=== PATIENT | male | born 1955 | race Hispanic/Latino ===

== ENCOUNTER 2019-07-27 13:26 | Inpatient (IN) | payer SELFPAY ==
[2019-07-27 14:29] LABS: Absolute Lymphocytes (CBC) 1.5 K/uL (0.7-4.9); Basophils % 0.9 % (0-1.3); Hematocrit 53.1 % (39.6-49.0); Lymphocytes % 20.9 % (15.3-44.8); Protime INR 1.1; RBC Red Blood Cell Count 6.08 M/uL (4.33-5.43)
[2019-07-27 14:44] LABS: ALT/SGPT 51 U/L (12-78); AST/SGOT 37 U/L (15-37); Albumin 3.9 g/dL (3.4-5.0); Alkaline Phosphatase 58 U/L (45-117); BUN Blood Urea Nitrogen 9 mg/dL (7-18); Bicarbonate 22 mmol/L (21-32); Bilirubin Direct 0.1 mg/dL (0-0.2); Bilirubin Total 0.6 mg/dL (0.2-1.0); Glucose Level 97 mg/dL (74-106); Magnesium 2.1 mg/dL (1.8-2.4); NT PRO-BNP 47 pg/mL (<125); Potassium 3.8 mmol/L (3.5-5.1); Protein, Total 8.1 g/dL (6.4-8.2); Sodium Level 138 mmol/L (136-145); Troponin (Emerg Dept Use Only) 0.03 ng/mL (0.0-0.045)
--- NOTE | 2019-07-27 14:52 | RAD REPORT ---
EXAM DESCRIPTION: RAD - Chest Single View - 07/27/2019 2:45 pm CLINICAL HISTORY: SOB COMPARISON: None TECHNIQUE: AP portable chest image was obtained 07/27/2019 2:45 pm . FINDINGS: Lung volumes are low. Portable technique and large body habitus accentuate lung markings. That said, patient has very prominent interstitial pattern throughout the lung rangel worse in the mi d and lower left lung field. There is probable airspace component in the left lung field. Cardiomegal y is present. Vascular engorgement is present. The trachea remains in the midline. Mild left hemidiap hragm elevation is present. No measurable pleural effusion and no pneumothorax. No acute bony abnorma lity seen. No acute aortic findings suspected. IMPRESSION: Extensive interstitial opacification throughout the lung rangel with greater interstitia l and some alveolar opacities in the lower left lung field. Patient could have left lower lung field pneumonia if there are matching clinical or laboratory findi ngs. CHF/volume overload can have this presentation as well.
--- NOTE | 2019-07-27 15:41 | ER ---
Nurse's Notes [facility] Name: Ramón Estrada Age: 64 yrs Sex: Male : 1955 Arrival Date: 07/27/2019 Time: 13:31 Bed 4 Private MD: Diagnosis: Unspecified diastolic (congestive) heart failure Presentation: 07/26 13:41 Chief complaint: Patient states: i went to clinic, the [facility] because i got tw2 some some cough but it has been there for a year, and i feel short of breath and tired and i start coughing, i rest and it gets better. Coronavirus screen: Patient reports a cough. Patient reports shortness of breath or difficulty breathing. Patient denies measured and/or subjective temperature greater than 100.4F prior to today's visit. Patient denies travel on a cruise ship or to a country the [facility] currently lists as an affected area. Patient denies contact with known and/or suspected case of COVID-19. Ebola Screen: Patient denies travel to an Ebola-affected area in the 21 days before illness onset. Initial Sepsis Screen: Does the patient meet any 2 criteria? RR > 20 per min. HR > 90 bpm. Does the patient have a suspected source of infection? No. Patient's initial sepsis screen is negative. Risk Assessment: Do you want to hurt yourself or someone else? Patient reports no desire to harm self or others. Onset of symptoms was July 27, 2019. 13:41 Method Of Arrival: Ambulatory tw2 13:41 Acuity: DAVE 3 tw2 Triage Assessment: 13:44 General: Appears in no apparent distress. obese, well groomed, Behavior is calm, tw2 cooperative, appropriate for age. Pain: Denies pain. Respiratory: Reports shortness of breath at rest on exertion Onset: The symptoms/episode began/occurred "a year now but this time it seems worse", the patient has moderate shortness of breath. Historical: - Allergies: 13:46 No Known Allergies; tw2 - Home Meds: 13:46 None [Active]; tw2 - PMHx: 13:46 unknown; tw2 - PSHx: 13:46 None; tw2 - Immunization history:: Adult Immunizations. - Social history:: Smoking status: Patient/guardian denies using tobacco products. Screenin:45 Abuse screen: Denies threats or abuse. Denies injuries from another. Nutritional bp screening: No deficits noted. Tuberculosis screening: No symptoms or risk factors identified. Fall Risk None identified. Assessment: 13:45 General: SEE TRIAGE NOTE. bp 14:00 General: Appears in no apparent distress. uncomfortable, Behavior is calm, cooperative, jl7 appropriate for age. Pain: Denies pain. Neuro: Level of Consciousness is awake, alert, obeys commands, Oriented to person, place, time, situation. Cardiovascular: Heart tones present Patient's skin is warm and dry. Respiratory: Airway is patent Respiratory effort is even, labored, Respiratory pattern is symmetrical, tachypnea Breath sounds are diminished bilaterally. GI: Abdomen is round non-distended, Patient currently denies diarrhea, nausea, vomiting. Derm: Skin is pink, warm \\T\\ dry. 14:26 Reassessment: ALL CURRENT ORDERS IN PROCESS. Cardiovascular: Rhythm is sinus rhythm. bp Respiratory: Airway is patent Respiratory effort is even, unlabored, Breath sounds are clear bilaterally. 15:00 Reassessment: Patient appears in no apparent distress at this time. No changes from jl7 previously documented assessment. Patient and/or family updated on plan of care and expected duration. Pain level reassessed. Patient is alert, oriented x 3, equal unlabored respirations, skin warm/dry/pink. 16:00 Reassessment: Patient appears in no apparent distress at this time. Patient and/or jl7 family updated on plan of care and expected duration. Pain level reassessed. Patient is alert, oriented x 3, equal unlabored respirations, skin warm/dry/pink. Patient denies pain at this time. Vital Signs: 13:41 BP 132 / 113; Pulse 101; Resp 22; Temp 98.0(TE); Pulse Ox 86% on R/A; Weight 124.74 kg tw2 (R); Height 5 ft. 7 in. (170.18 cm) (R); Pain 0/10; 13:59 BP 153 / 99; Pulse 95; Resp 29; Pulse Ox 95% 3 lpm ; Pain 0/10; jl7 14:24 BP 153 / 84; Pulse 93; Resp 27; Pulse Ox 95% ; bp 15:32 BP 143 / 95; Pulse 85; Resp 25; Pulse Ox 91% on 3 lpm NC; jl7 16:06 BP 143 / 86; Pulse 91; Resp 28 S; Pulse Ox 94% on 3 lpm NC; jl7 13:41 Body Mass Index 43.07 (124.74 kg, 170.18 cm) tw2 13:41 placed on 2L nc at this time, 96% on 2L tw2 ED Course: 13:31 Patient arrived in ED. mr 13:44 Triage completed. tw2 13:44 Arm band placed on. tw2 13:45 Patient has correct armband on for positive identification. Bed in low position. Call bp light in reach. Side rails up X2. 13:47 Archana Stratton RN is Primary Nurse. jl7 13:59 [facility] snw 13:59 Rl Velez MD is Attending Physician. snw 14:00 environmental monitoring specialist on. Pulse ox on. NIBP on. jl7 14:13 Initial lab(s) drawn, by mo, sent to lab. Inserted saline lock: 20 gauge in right jl7 forearm, using aseptic technique. Blood collected. Oxygen administration via nasal cannula \\T\\ 3L/min Response to oxygen therapy: symptoms improved. 14:46 XRAY Chest (1 view) In Process Unspecified. EDMS 15:39 Le Sagastume MD is Hospitalizing Provider. snw 16:05 COIVD-19 swab sent to lab. Informed Shari in the lab the pt is being admitted and the jl7 swab needs to go to Shari Flood verbalized understanding. 17:08 No provider procedures requiring assistance completed. Patient admitted, IV remains in jl7 place. intact, No redness/swelling at site. Administered Medications: 16:06 Drug: Lasix 20 mg Route: IVP; Site: right forearm; jl7 16:55 Follow up: Response: No adverse reaction jl7 16:06 Drug: Aspirin Chewable Tablet 324 mg Route: PO; jl7 16:55 Follow up: Response: No adverse reaction jl7 Outcome: 15:39 Decision to Hospitalize by Provider. snw 17:08 Admitted to Med/surg accompanied by nurse, via wheelchair, room 412, with oxygen, with jl7 chart, Report called to BARD Shetty 17:08 Condition: stable 17:08 Discharge instructions given to patient, Instructed on the need for admit, Demonstrated understanding of instructions. 17:25 Patient left the ED. jl7 Signatures: Dispatcher [employer] EDMS Lillian Heranndez, SCARF GLUER-C SCARF GLUER-Csnw MeehanAna Cristina mr Nano Dodd, RN RN tw2 Archana Stratton RN RN jl7 Ab Garcia RN RN bp
--- NOTE | 2019-07-27 15:42 | EDPHYS ---
Physician Documentation [facility] Name: Ramón Estrada Age: 64 yrs Sex: Male : 1955 Arrival Date: 07/27/2019 Time: 13:31 Bed 4 Private MD: ED Physician Rl Velez HPI: 07/26 14:38 This 64 yrs old Male presents to ER via Ambulatory with complaints of snw Shortness Of Breath. 14:38 The patient has shortness of breath at rest, with light activity. Onset: The snw symptoms/episode began/occurred gradually. Duration: The symptoms are continuous. Associated signs and symptoms: Pertinent positives: non-productive cough. Severity of symptoms: At their worst the symptoms were moderate severe. The patient has not experienced similar symptoms in the past. The patient has been recently seen by a physician: the patient's primary care provider, with similar presenting complaints, and was sent to the [facility] Emergency Department for further evaluation. Historical: - Allergies: 13:46 No Known Allergies; tw2 - Home Meds: 13:46 None [Active]; tw2 - PMHx: 13:46 unknown; tw2 - PSHx: 13:46 None; tw2 - Immunization history:: Adult Immunizations. - Social history:: Smoking status: Patient/guardian denies using tobacco products. ROS: 14:37 Eyes: Negative for injury, pain, redness, and discharge, ENT: Negative for injury, snw pain, and discharge, Neck: Negative for injury, pain, and swelling. 14:37 Abdomen/GI: Negative for abdominal pain, nausea, vomiting, diarrhea, and constipation, Back: Negative for injury and pain, : Negative for injury, bleeding, discharge, and swelling, MS/Extremity: Negative for injury and deformity, Skin: Negative for injury, rash, and discoloration, Neuro: Negative for headache, weakness, numbness, tingling, and seizure, Psych: Negative for depression, anxiety, suicide ideation, homicidal ideation, and hallucinations. 14:37 Constitutional: Positive for fatigue, malaise. 14:37 Cardiovascular: Positive for orthopnea, paroxysmal nocturnal dyspnea. 14:37 Respiratory: Positive for cough, shortness of breath. Exam: 14:35 Head/Face: Normocephalic, atraumatic. Eyes: Pupils equal round and reactive to light, snw extra-ocular motions intact. Lids and lashes normal. Conjunctiva and sclera are non-icteric and not injected. Cornea within normal limits. Periorbital areas with no swelling, redness, or edema. ENT: Nares patent. No nasal discharge, no septal abnormalities noted. Tympanic membranes are normal and external auditory canals are clear. Oropharynx with no redness, swelling, or masses, exudates, or evidence of obstruction, uvula midline. Mucous membranes moist. Neck: Trachea midline, no thyromegaly or masses palpated, and no cervical lymphadenopathy. Supple, full range of motion without nuchal rigidity, or vertebral point tenderness. No Meningismus. Chest/axilla: Normal chest wall appearance and motion. Nontender with no deformity. No lesions are appreciated. 14:35 Abdomen/GI: Soft, non-tender, with normal bowel sounds. No distension or tympany. No guarding or rebound. No evidence of tenderness throughout. Back: No spinal tenderness. No costovertebral tenderness. Full range of motion. Skin: Warm, dry with normal turgor. Normal color with no rashes, no lesions, and no evidence of cellulitis. MS/ Extremity: Pulses equal, no cyanosis. Neurovascular intact. Full, normal range of motion. Neuro: Awake and alert, GCS 15, oriented to person, place, time, and situation. Cranial nerves II-XII grossly intact. Motor strength 5/5 in all extremities. Sensory grossly intact. Cerebellar exam normal. Normal gait. Psych: Awake, alert, with orientation to person, place and time. Behavior, mood, and affect are within normal limits. 14:35 Constitutional: The patient appears alert, awake, comfortable, obese. 14:35 Cardiovascular: Rate: tachycardic, Rhythm: irregular, Pulses: no pulse deficits are appreciated, Heart sounds: gallop, Edema: is not appreciated. 14:35 Respiratory: the patient does not display signs of respiratory distress, Respirations: nasal flaring, that is moderate, shallow respirations, tachypnea, Breath sounds: are clear throughout. Vital Signs: 13:41 BP 132 / 113; Pulse 101; Resp 22; Temp 98.0(TE); Pulse Ox 86% on R/A; Weight 124.74 kg tw2 (R); Height 5 ft. 7 in. (170.18 cm) (R); Pain 0/10; 13:59 BP 153 / 99; Pulse 95; Resp 29; Pulse Ox 95% 3 lpm ; Pain 0/10; jl7 14:24 BP 153 / 84; Pulse 93; Resp 27; Pulse Ox 95% ; bp 15:32 BP 143 / 95; Pulse 85; Resp 25; Pulse Ox 91% on 3 lpm NC; jl7 16:06 BP 143 / 86; Pulse 91; Resp 28 S; Pulse Ox 94% on 3 lpm NC; jl7 13:41 Body Mass Index 43.07 (124.74 kg, 170.18 cm) tw2 13:41 placed on 2L nc at this time, 96% on 2L tw2 MDM: 14:24 Patient medically screened. snw 15:37 Data reviewed: vital signs, nurses notes, EKG. Data interpreted: Pulse oximetry: on snw room air is 91 %. Interpretation: hypoxia. Plan: O2 by NC applied. Counseling: I had a detailed discussion with the patient and/or guardian regarding: the historical points, exam findings, and any diagnostic results supporting the discharge/admit diagnosis, the presence of at least one elevated blood pressure reading (>120/80) during this emergency department visit, lab results, radiology results, the need for further work-up and treatment in the hospital. Physician consultation: Le Sagastume MD was called at 15:38, was contacted at 15:38, regarding admission, to the telemetry unit. 07/26 13:59 Order name: Basic Metabolic Panel; Complete Time: 14:45 07/26 13:59 Order name: CBC with Diff; Complete Time: 14:40 07/26 13:59 Order name: LFT's; Complete Time: 14:45 07/26 13:59 Order name: Magnesium; Complete Time: 14:45 07/26 13:59 Order name: NT PRO-BNP; Complete Time: 14:45 07/26 13:59 Order name: PT-INR; Complete Time: 14:39 07/26 13:59 Order name: Troponin (emerg Dept Use Only); Complete Time: 14:45 07/26 13:59 Order name: XRAY Chest (1 view); Complete Time: 15:14 07/26 15:37 Order name: COVID-19; Complete Time: 16:33 snw 07/26 16:20 Order name: CBC with Automated Diff EDMS 07/26 16:20 Order name: CBC with Automated Diff EDMS 07/26 16:20 Order name: Comprehensive Metabolic Panel EDTX 07/26 16:20 Order name: Comprehensive Metabolic Panel EDTX 07/26 13:59 Order name: EKG; Complete Time: 14:01 7 07/26 13:59 Order name: Cardiac monitoring; Complete Time: 14:13 7 07/26 13:59 Order name: EKG - Nurse/Tech; Complete Time: 14:13 7 07/26 13:59 Order name: IV Saline Lock; Complete Time: 14:13 7 07/26 13:59 Order name: Labs collected and sent; Complete Time: 14:13 7 07/26 13:59 Order name: O2 Per Protocol; Complete Time: 14:13 7 07/26 13:59 Order name: O2 Sat Monitoring; Complete Time: 14:13 [facility] 07/26 16:19 Order name: CONS Pharmacy Consult EDTX 07/26 16:19 Order name: CONS Physician Consult EDTX 07/26 16:19 Order name: Heart Healthy EDMS EC:10 Rate is 97 beats/min. Rhythm is regular. [place] interval is normal. QRS interval is normal. snw T waves are Inverted in leads III, V3, V4. No ST changes noted. Clinical impression: NSR w/ Non-specific ST/T Changes. Administered Medications: 16:06 Drug: Lasix 20 mg Route: IVP; Site: right forearm; [facility] 16:55 Follow up: Response: No adverse reaction [facility] 16:06 Drug: Aspirin Chewable Tablet 324 mg Route: PO; jl7 16:55 Follow up: Response: No adverse reaction jl Disposition: 07/27 13:39 Co-signature as Attending Physician, Rl Velez MD I agree with the assessment and kdr plan of care. Disposition: 07/27/19 15:39 Hospitalization ordered by Le Sagastume for Observation. Preliminary diagnosis is Unspecified diastolic (congestive) heart failure. - Bed requested for Telemetry/MedSurg (Inpatient). - Status is Observation. jl7 - Condition is Stable. - Problem is an ongoing problem. - Symptoms have worsened. Signatures: Dispatcher [employer] EDMS Sherley Haywood bd Rl Velez MD MD kdr Lillian Hernandez, PROFILE STITCHING MACHINE OPERATOR-C PROFILE STITCHING MACHINE OPERATOR-Csnw Nano Dodd, BRAD RN tw2 Archana Stratton, BRAD RN jl7 Corrections: (The following items were deleted from the chart) 07/26 16:32 15:39 Hospitalization Ordered by Le Sagastume MD for Inpatient Admission. Preliminary snw diagnosis is Unspecified diastolic (congestive) heart failure. Bed requested for Telemetry/MedSurg (Inpatient). Status is Inpatient Admission. Condition is Stable. Problem is an ongoing problem. Symptoms have worsened. snw 16:46 16:32 07/27/2019 15:39 Hospitalization Ordered by Le Sagastume MD for Observation. bd Preliminary diagnosis is Unspecified diastolic (congestive) heart failure. Bed requested for Telemetry/MedSurg (Inpatient). Status is Observation. Condition is Stable. Problem is an ongoing problem. Symptoms have worsened. [facility] 17:25 16:46 07/27/2019 15:39 Hospitalization Ordered by Le Sagastume MD for Observation. jl7 Preliminary diagnosis is Unspecified diastolic (congestive) heart failure. Bed requested for Telemetry/MedSurg (Inpatient). Status is Observation. Condition is Stable. Problem is an ongoing problem. Symptoms have worsened. bd
[2019-07-27] MEDS ORDERED: ASPIRIN 81 MG CHEWABLE TABLET ONE (16:00)
[2019-07-27] MEDS ORDERED: FUROSEMIDE 20 MG/ 2ML VIAL ONE (16:00)
[2019-07-27] MEDS ORDERED: MORPHINE 2 MG/ML SYR IV PRN (16:01)
[2019-07-27] MEDS ORDERED: ONDANSETRON 4 MG/2 ML VIAL IV PRN (16:01)
[2019-07-27] MEDS ORDERED: ACETAMINOPHEN 500 MG TAB PO PRN (16:01)
[2019-07-27] MEDS ORDERED: ALBUTEROL 2.5 MG/3 ML NEB SOL NEB PRN (17:48)
[2019-07-27] MEDS ORDERED: LORAZEPAM 0.5 MG TABLET PO PRN (17:48)
[2019-07-27] MEDS ORDERED: HYDRALAZINE HCL 20 MG/ML VIAL IV PRN (17:48)
[2019-07-27] MEDS ORDERED: GUAIFENESIN/DM 5 ML UCUP PO PRN (17:48)
--- NOTE | 2019-07-27 17:51 | P.HP ---
Certification for Inpatient Patient admitted to: Observation With expected LOS: <2 Midnights Patient will require the following post-hospital care: None Practitioner: I am a practitioner with admitting privileges, knowledge of patient current condition, hospital course, and medical plan of care. Services: Services provided to patient in accordance with Admission requirements found in Title 42 Section 412.3 of the Code of Federal Regulations Patient History Date of Service: 07/27/19 Reason for admission: Shortness of breath History of Present Illness: 64-year-old male with no past medical history except for mild obesity, admitted because of worsening shortness of breath since the last 1 week. He admits to cough with increased activity. He denies any sputum. He denies any fever or chills. He denies any cough contact. He denies any sick contacts. No recent travel. On presentation he was noted with increased wall cough preteen w ith low O2 sats to the low 80s. Chest x-ray shows diffuse interstitial pattern possible for CHF. He was noted with elevated BNP. He has been given Lasix. Her neck is currently on O2. He has been admitted for new onset CHF vs rule out covid pneumonia Allergies No Known Allergies Allergy (Unverified 07/27/19 17:39) Home Medications: NK [No Home Meds] 07/27/19 - Past Medical/Surgical History Has patient received pneumonia vaccine in the past: Yes - Social History Smoking Status: Never smoker Alcohol use: Yes CD- Drugs: No Caffeine use: Yes Place of Residence: Home Review of Systems 10-point ROS is otherwise unremarkable Physical Examination - Vital Signs Temperature: 98.4 F Blood Pressure: 160/95 Pulse: 94 Respirations: 18 Pulse Ox (%): 93 - Physical Exam General: Alert, In no apparent distress, Oriented x3, Obese HEENT: Atraumatic, Normocephalic Neck: Supple, 2+ carotid pulse no bruit, JVD not distended Respiratory: Clear to auscultation bilaterally, Diminished (At the bases) Cardiovascular: Normal pulses, Regular rate/rhythm, Normal S1 S2, Edema (1+ bilaterally) Gastrointestinal: Normal bowel sounds, Soft and benign, Non-distended Musculoskeletal: No clubbing, No swelling Neurological: Normal gait, Normal speech, Normal strength at 5/5 x4 extr - Studies Laboratory Data (last 24 hrs) 07/27/19 14:06: PT 13.0 H, INR 1.10 07/27/19 14:06: WBC 7.2, Hgb 17.5, Hct 53.1 H, Plt Count 203 07/27/19 14:06: Sodium 138, Potassium 3.8, BUN 9, Creatinine 0.84, Glucose 97, Magnesium 2.1, Total Bilirubin 0.6, AST 37, ALT 51, Alkaline Phosphatase 58 Microbiology Data (last 24 hrs): 07/27/19 15:58 Nasopharnyx Coronavirus COVID-19 PCR - Final Imagings Data: EXAM DESCRIPTION: RAD - Chest Single View - 07/27/2019 2:45 pm CLINICAL HISTORY: SOB COMPARISON: None TECHNIQUE: AP portable chest image was obtained 07/27/2019 2:45 pm . FINDINGS: Lung volumes are low. Portable technique and large body habitus accentuate lung markings. That said, patient has very prominent interstitial pattern throughout the lung rangel worse in the mid and lower left lung field. There is probable airspace component in the left lung field. Cardiomegaly is present. Vascular engorgement is present. The trachea remains in the midline. Mild left hemidiaphragm elevation is present. No measurable pleural effusion and no pneumothorax. No acute bony abnormality seen. No acute aortic findings suspected. IMPRESSION: Extensive interstitial opacification throughout the lung rangel with greater interstitial and some alveolar opacities in the lower left lung field. Patient could have left lower lung field pneumonia if there are matching clinical or laboratory findings. CHF/volume overload can have this presentation as well. Assessment and Plan - Problems (Diagnosis) (1) Diastolic CHF, acute Current Visit: Yes Status: Acute (2) Hypertension Current Visit: Yes Status: Acute (3) COVID-19 ruled out Current Visit: Yes Status: Acute Discharge Plan: Home - Advance Directives Does patient have a Living Will: No Does patient have a Durable POA for Healthcare: No - Code Status/Comfort Care Code Status Assessed: Yes Code Status: Full Code Physician Review: Patient Assessed, Agree with Above Assessment and Plan Physician Review Additional Text: Hypoxemia-possibly due to new onset CHF Will obtain covid 19 testing since interstitial pattern of edema -we start empirical Lasix 40 mg Q 12 Obtain echocardiogram Obtain tsh Replace potassium or magnesium as tolerated place in droplet isolation for now Hypertension-new onset start empirical amlodipine DVT prophylaxis-subcutaneous Lovenox Advanced directives patient is full code Critical Care: No Time Spent Managing Pts Care (In Minutes): 65
[2019-07-27] MEDS: ENOXAPARIN 40 MG/0.4 ML SQ SCH (18:18)
[2019-07-27] MEDS: FUROSEMIDE 40 MG/4 ML VIAL IV SCH (18:19)
[2019-07-27] MEDS: AZITHROMYCIN 250 MG TAB PO SCH (18:19)
[2019-07-27] MEDS: IPRATROPIUM BROM 0.5MG/2.5ML NEB SCH (19:47)
[2019-07-28] MEDS: IPRATROPIUM BROM 0.5MG/2.5ML NEB SCH ×4 (02:28→19:50)
[2019-07-28 04:22] LABS: Absolute Lymphocytes (CBC) 2.2 K/uL (0.7-4.9); Basophils % 0.8 % (0-1.3); Hematocrit 51.4 % (39.6-49.0); Lymphocytes % 32.1 % (15.3-44.8); MPV 8.2 fL (7.6-11.3); RBC Red Blood Cell Count 5.94 M/uL (4.33-5.43)
[2019-07-28 04:38] LABS: Albumin 3.7 g/dL (3.4-5.0); Bilirubin Total 0.7 mg/dL (0.2-1.0); Potassium 3.5 mmol/L (3.5-5.1); Protein, Total 7.8 g/dL (6.4-8.2)
--- NOTE | 2019-07-28 06:55 | EKG ---
Test Date: 2019-07-27 Test Time: 14:05:40 Cloth Pattern Maker: FRANCHESCA MEASUREMENT RESULTS: Intervals: Rate: 97 NV: 148 QRSD: 84 QT: 356 QTc: 452 [place]: P: 54 NV: 148 QRS: 108 T: 15 INTERPRETIVE STATEMENTS: Normal sinus rhythm Rightward axis Borderline ECG No previous ECG available for comparison Electronically Signed On 07-28-19 06:53:27 CDT by Colt Kent
[2019-07-28] MEDS: AZITHROMYCIN 250 MG TAB PO SCH (07:19)
[2019-07-28] MEDS: FUROSEMIDE 40 MG/4 ML VIAL IV SCH ×2 (07:20→16:16)
[2019-07-28] MEDS: ASPIRIN EC 81 MG TAB PO SCH (07:20)
[2019-07-28] MEDS: ENOXAPARIN 40 MG/0.4 ML SQ SCH (07:20)
--- NOTE | 2019-07-28 13:21 | RAD REPORT ---
EXAM DESCRIPTION: CT - Chest For Pe Angio - 07/28/2019 1:13 pm CLINICAL HISTORY: Chest pain. RP PE COMPARISON: Chest Single View dated 07/27/2019 TECHNIQUE: CT angiogram of the pulmonary arteries was performed with MIP. All CT scans are performed using dose optimization technique as appropriate and may include automated exposure control or mA/KV adjustment according to patient size. FINDINGS: No evidence of pulmonary thromboembolism. No acute aortic finding demonstrated. Bilateral interstitial lung opacities are present suggesting interstitial pneumonia or mild interstit ial pulmonary edema. No significant pericardial or pleural fluid. Mildly prominent mediastinal and hilar lymph nodes seen. Most likely, these are reactive in etiology. Mild lower thoracic spondylosis with multilevel bridging anterior osteophytosis. Small right adrenal lesion is present measuring 13 mm, statistically likely an adenoma. IMPRESSION: No evidence of pulmonary thromboembolism. Bilateral interstitial lung opacities suggests interstitial pneumonia or less likely interstitial pul monary edema.
--- NOTE | 2019-07-28 14:44 | P.PN ---
Subjective Date of Service: 07/28/19 Chief Complaint: Shortness of breath Subjective: No new changes, No C/O voiced (still mild SOB , but improving) Physical Examination - Vital Signs Temperature: 98.1 F Blood Pressure: 114/72 Pulse: 93 Respirations: 20 Pulse Ox (%): 91 - Physical Exam General: Alert, In no apparent distress, Oriented x3 HEENT: Atraumatic, Normocephalic, PERRLA Neck: 2+ carotid pulse no bruit, JVD not distended Respiratory: Diminished Cardiovascular: No edema, Regular rate/rhythm, Normal S1 S2 Gastrointestinal: Normal bowel sounds, Soft and benign, Non-distended Musculoskeletal: No clubbing, No swelling Integumentary: No rashes, No breakdown Neurological: Normal speech, Normal strength at 5/5 x4 extr, Normal tone - Studies Laboratory Data (last 24 hrs) 07/28/19 03:28: Sodium 138, Potassium 3.5, BUN 13, Creatinine 0.92, Glucose 93, Total Bilirubin 0.7, AST 36, ALT 49, Alkaline Phosphatase 56 07/28/19 03:28: WBC 6.8, Hgb 17.2, Hct 51.4 H, Plt Count 212 07/27/19 14:06: PT 13.0 H, INR 1.10 07/27/19 14:06: WBC 7.2, Hgb 17.5, Hct 53.1 H, Plt Count 203 07/27/19 14:06: Sodium 138, Potassium 3.8, BUN 9, Creatinine 0.84, Glucose 97, Magnesium 2.1, Total Bilirubin 0.6, AST 37, ALT 51, Alkaline Phosphatase 58 Microbiology Data (last 24 hrs): 07/27/19 22:06 Blood - Blood Anaerobic Blood Culture - Final 07/27/19 22:00 Blood - Blood Anaerobic Blood Culture - Final 07/27/19 15:58 Nasopharnyx Coronavirus COVID-19 PCR - Final Assessment And Plan - Current Problems (Diagnosis) (1) Diastolic CHF, acute Current Visit: Yes Status: Acute (2) Hypertension Current Visit: Yes Status: Acute (3) COVID-19 ruled out Current Visit: Yes Status: Acute Physician Review: Patient Assessed, Agree with Above Assessment and Plan Physician Review Additional Text: New onset CHF-possibly diastolic Follow echocardiogram Improving oxygenation on weaning the O2 to 1 L now Covid 19 test negative Continue Lasix can switch to p.o. Transferred to regular floor Hypertension-improving, continue amlodipine we switch to lisinopril and Toprol DVT prophylaxis-subcutaneous Lovenox Advanced directives patient is full code Time Spent Managing PTS Care (In Minutes): 30
[2019-07-29] MEDS: IPRATROPIUM BROM 0.5MG/2.5ML NEB SCH ×3 (01:40→12:43)
[2019-07-29] MEDS: AZITHROMYCIN 250 MG TAB PO SCH (09:00)
[2019-07-29] MEDS: ENOXAPARIN 40 MG/0.4 ML SQ SCH (09:18)
[2019-07-29] MEDS: ASPIRIN EC 81 MG TAB PO SCH (09:18)
[2019-07-29] MEDS: FUROSEMIDE 40 MG/4 ML VIAL IV SCH (09:18)
[2019-07-29] MEDS: lisinopriL 20 MG TAB PO SCH (09:19)
--- NOTE | 2019-07-29 12:57 | P.CNS ---
Date of Consult: 07/29/19 Reason for Consult: Hypoxemia interstitial lung disease Chief Complaint: Shortness of breath History of Present Illness: Patient is 64 years of age evaluated by me complaining of chronic cough shortness of breath became worse recently admitted from the Emergency Room [place] virus is negative no prior history of cardiopulmonary problems/no history of fever chills or travel DT scan shows significant interstitial lung disease poly pulmonary fibrosis Allergies No Known Allergies Allergy (Unverified 07/27/19 17:39) Home Medications: NK [No Home Meds] 07/27/19 - Social History Alcohol use: Yes CD- Drugs: No Caffeine use: Yes Place of Residence: Home Review of Systems 10-point ROS is otherwise unremarkable Physical Examination Temp Pulse Resp BP Pulse Ox 97.6 F 92 H 20 115/71 96 07/29/19 08:00 07/29/19 09:19 07/29/19 08:00 07/29/19 09:19 07/29/19 08:00 General: Alert, Oriented x3 HEENT: Atraumatic Neck: Supple Respiratory: Crackles/rales (Bibasilar) Cardiovascular: No edema, Regular rate/rhythm, Normal S1 S2 Gastrointestinal: Normal bowel sounds, Soft and benign - Problems (1) Pulmonary fibrosis Current Visit: Yes Status: Acute Plan: Patient is 64 years of age admitted with chronic dyspnea and cough presumed underlying pulmonary fibrosis no evidence of pneumonia chemistries reviewed white count is normal no fever cultures negative BNP is also normal patient can be discharged home on low-dose prednisone 10 mg twice a day for 2 weeks follow- up with me in 2 weeks he will need outpatient pulmonary function testing I suggest discharging on low-dose spironolactone may have underlying diastolic dysfunction patient is a is a hypoxic started patient on steroids Dc antibiotics
[2019-07-29] MEDS: predniSONE 20 MG TAB PO SCH ×2 (13:43→20:51)
--- NOTE | 2019-07-29 15:37 | P.PN ---
Subjective Date of Service: 07/29/19 Chief Complaint: Shortness of breath Subjective: No new changes, No C/O voiced (- seen today - worried about his need for 02 still -s/p wean off this am but sat drop to low 80s on room air) Physical Examination - Vital Signs Temperature: 97.2 F Blood Pressure: 95/63 Pulse: 101 Respirations: 20 Pulse Ox (%): 94 - Physical Exam General: Alert, In no apparent distress, Oriented x3 HEENT: Atraumatic, Normocephalic, PERRLA Neck: Supple, 2+ carotid pulse no bruit, JVD not distended Respiratory: Normal air movement, Diminished Cardiovascular: No edema, Normal pulses, Regular rate/rhythm Gastrointestinal: Normal bowel sounds, Soft and benign Musculoskeletal: No clubbing, No swelling Neurological: Normal speech, Normal strength at 5/5 x4 extr - Studies Microbiology Data (last 24 hrs): 07/27/19 22:06 Blood - Blood Anaerobic Blood Culture - Final 07/27/19 22:00 Blood - Blood Anaerobic Blood Culture - Final Assessment And Plan - Current Problems (Diagnosis) (1) Diastolic CHF, acute Current Visit: Yes Status: Acute (2) Hypertension Current Visit: Yes Status: Acute (3) COVID-19 ruled out Current Visit: Yes Status: Acute Physician Review: Patient Assessed, Agree with Above Assessment and Plan Physician Review Additional Text: Hypoxemia - pmay be due to possible viral pna vs New onset diastolic CHF - still awaiting Echocardiography - ordered since 07/27/19 -cardiology team called -trending down low BP , will reduce lasix doses now - worsening clinical hypoxia -pt on 3 L now , as against room air when he presented to the ER , unable to wean today due to hypoxia - despite covid neg testing , i still strongly suspected Covbid pneumonia since interstitial disease on XR and CT and r/o PE -Appreciate pulmonary eval - will obtain C-RP now , if elevated , will send test again for covid Hypertension-low now -will dc lsinopril DVT prophylaxis-subcutaneous Lovenox Advanced directives patient is full code
[2019-07-29] MEDS ORDERED: AMLODIPINE 5 MG TAB PO SCH (17:42)
[2019-07-29] MEDS: IPRATROPIUM BROM 0.5MG/2.5ML NEB PRN (20:40)
[2019-07-29] MEDS: ALBUTEROL 2.5 MG/3 ML NEB SOL NEB PRN (20:40)
[2019-07-30] MEDS: IPRATROPIUM BROM 0.5MG/2.5ML NEB PRN (07:52)
[2019-07-30] MEDS: ALBUTEROL 2.5 MG/3 ML NEB SOL NEB PRN (07:52)
[2019-07-30] MEDS: lisinopriL 20 MG TAB PO SCH (09:00)
[2019-07-30] MEDS: FUROSEMIDE 40 MG/4 ML VIAL IV SCH (09:09)
[2019-07-30] MEDS: predniSONE 20 MG TAB PO SCH ×2 (09:09→20:44)
[2019-07-30] MEDS: ASPIRIN EC 81 MG TAB PO SCH (09:09)
[2019-07-30] MEDS: ENOXAPARIN 40 MG/0.4 ML SQ SCH (09:09)
--- NOTE | 2019-07-30 13:12 | ECHO ---
HEIGHT: 5 ft 8 in WEIGHT: 257 lb 11.2 oz DATE OF STUDY: 07/29/[address]: Le Sagastume MD 2-DIMENSIONAL: YES M.MODE: YES DOPPLER: YES COLOR FLOW: YES TDS: YES PORTABLE: NO DEFINITY: NO BUBBLE STUDY: NO DIAGNOSIS: CEREBRAL VASCULAR ACCIDENT CARDIAC HISTORY: CATHERIZATION: NO SURGERY: NO PROSTHETIC VALVE: NO PACEMAKER: NO MEASUREMENTS (cm) DIASTOLIC (NORMALS) SYSTOLIC (NORMALS) IVSd 1.2 (0.6-1.2) LA Diam (1.9-4.0) LVEF 50-55% LVIDd 3.1 (3.5-5.7) LVIDs 2.0 (2.0-3.5) %FS 35% LVPWd 1.2 (0.6-1.2) Ao Diam 3.2 (2.0-3.7) 2 DIMENSIONAL ASSESSMENT: RIGHT ATRIUM: NORMAL LEFT ATRIUM: NORMAL RIGHT VENTRICLE: NORMAL LEFT VENTRICLE: MILD LEFT VENTRICULAR HYPERTROPHY TRICUSPID VALVE: NORMAL MITRAL VALVE: NORMAL PULMONIC VALVE: NOT SEEN AORTIC VALVE: NORMAL PERICARDIAL EFFUSION: NONE AORTIC ROOT: NORMAL LEFT VENTRICULAR WALL MOTION: LOW NORMAL LEFT VENTRICULAR EJECTION FRACTION 50-55%. DOPPLER/COLOR FLOW: SEE ABOVE. COMMENTS: NORMAL LEFT VENTRICULAR EJECTION FRACTION WITH MILD GENERAL HYPOKINESIS. ATRIAL FIBRILLATION. TECHNOLOGIST: TAO LAW
[2019-07-30 14:14] LABS: Arterial Blood Carboxyhemoglob 1.5 % (0-1.5); Blood Gas Oxyhemoglobin 88.4 % (94-97); Blood O2 Saturation 90.7 % (92-98.5)
--- NOTE | 2019-07-30 18:19 | PN ---
Date of Progress Note: 07/30/2019 Subjective: Patient seen and examined. Chart reviewed and case discussed with RN. Patient's echoca rdiogram per verbal report shows EF of 50%, low-normal due to atrial fibrillation. Patient did repor t some dizziness this morning. Code Status: Do not resuscitate. Medications: List reviewed. Physical Examination: Vital Signs: Temperature 97.1, heart rate 88, blood pressure 102/57, respirations 18, O2 97% on 2 L via nasal cannula. GENERAL: Awake, alert, oriented x3. Elderly male, obese, in some mild distress. CV: S1, S2. Regular rate and rhythm. Peripheral pulses present. Respiratory: Moving air well bilaterally. No wheezing or stridor. Gastrointestinal: Abdomen is soft, nontender, nondistended. Positive bowel sounds. Extremities: No clubbing, cyanosis, or edema. Neuro: Nonfocal. Cranial nerves 2 through 12 intact grossly. Skin: No rashes. Normal skin turgor. Psych: Mood is okay. Affect is full. Insight and judgment are good. Laboratory Data: Pending. COVID has been ruled out. Blood cultures, no growth to date. Assessment: A 64-year-old male with: 1.Acute respiratory distress with hypoxemia, likely due to viral pneumonia versus new-onset congesti ve heart failure, improving. Patient is still requiring oxygen. Appreciate Pulmonology input. 2.Acute diastolic congestive heart failure. Echocardiogram shows ejection fraction of 50%. 3.[place] under investigation for coronavirus disease 2019. His testing is negative, however, still have some suspicion. CRP is mildly elevated. Consider retesting. 4.Essential hypertension. Patient is somewhat hypotensive. Lisinopril has been held. 5.Deep vein thrombosis prophylaxis, patient is on Lovenox. Plan: We will continue breathing treatments. Continue Lasix and steroids. Patient uninsured, unabl e to set up the home oxygen. We will discuss further with Pulmonology. SA/MODL Voice ID: [id number] Report ID: [id number]
[2019-07-31 05:23] VITALS: BMI 39.1
[2019-07-31 05:51] LABS: Absolute Lymphocytes (CBC) 1.8 K/uL (0.7-4.9); Basophils % 0.2 % (0-1.3); Hematocrit 48.4 % (39.6-49.0); Lymphocytes % 23.2 % (15.3-44.8); RBC Red Blood Cell Count 5.51 M/uL (4.33-5.43)
[2019-07-31 06:37] LABS: Albumin 3.8 g/dL (3.4-5.0); Bilirubin Total 0.8 mg/dL (0.2-1.0); Potassium 4.9 mmol/L (3.5-5.1); Protein, Total 7.9 g/dL (6.4-8.2)
[2019-07-31] MEDS: IPRATROPIUM BROM 0.5MG/2.5ML NEB PRN (08:53)
[2019-07-31] MEDS: ALBUTEROL 2.5 MG/3 ML NEB SOL NEB PRN (08:53)
[2019-07-31] MEDS: lisinopriL 20 MG TAB PO SCH (08:56)
[2019-07-31] MEDS: ENOXAPARIN 40 MG/0.4 ML SQ SCH (08:56)
[2019-07-31] MEDS: ASPIRIN EC 81 MG TAB PO SCH (08:56)
[2019-07-31] MEDS: predniSONE 20 MG TAB PO SCH (08:56)
[2019-07-31] MEDS: FUROSEMIDE 40 MG/4 ML VIAL IV SCH (08:56)
[2019-07-31 09:22] VITALS: O2SAT 95
--- NOTE | 2019-07-31 13:50 | DS ---
[employer] Officer: Dr. Ordoñez with Pulmonology. Admitting Diagnoses: 1. Acute diastolic heart failure. 2. Essential hypertension. 3. Coronavirus disease ruled out. Discharge Diagnoses: 1. Acute diastolic heart failure, ejection fraction of 50%. 2. Acute respiratory distress with hypoxemia. 3. Patient under investigation for coronavirus disease 2019 test negative. 4. Essential hypertension, stable. Hospital Course: Patient is a 64-year-old male with no past medical history except for obesity, comes in with shortness of breath which has been ongoing for months, however, significantly worsened over the past week. Patient was found to have hypoxia with low O2 sats in the 80s. X-ray shows interstitial pattern, possible CHF, elevated BNP. Patient was started on Lasix. Patient had significant diuresis with negative fluid balance. He was seen by Pulmonology. CT angio chest, thorax was done showed no evidence of PE, showed bilateral interstitial lung opacities suggestive of interstitial pneumonia or less likely interstitial pulmonary edema. Patient's COVID testing was negative. Pulmonology did not feel that this was related to COVID. Symptoms have been ongoing for months with acute desaturation. Pulmonary felt that this is likely pulmonary fibrosis. Patient's cultures were negative. He was afebrile. He was also doing better on steroids and nebulizers. Patient was then cleared for discharge on prednisone 10 mg twice a day for 2 weeks and outpatient pulmonary function testing. Patient was somewhat hypoxic and required home oxygen however is uninsured and has no funding. Room air saturations were 94%. early this morning. The patient was then cleared for discharge. His ABG showed a pO2 of 61 at rest and therefore will not qualify for oxygen. He was given the option of private pay oxygen which can be set up with [facility]. Patient declined. Patient was then discharged home in a stable condition. Activity: As tolerated. No strenuous activity. Diet: Low-sodium 1500 mL fluid restriction. Followup: Follow up with primary care physician in 2 to 3 days. Follow up with media relations specialist, Dr. Ordoñez in 2 weeks for outpatient pulmonary function testing. Return to ER for worsening condition. Medications: As per medication reconciliation list. Finish off course of steroids. No need for antibiotics. Physical Examination: General: Awake, alert, and oriented x3. Elderly male, obese. CV: S1, S2. Respiratory: Moving air well bilaterally. Abdomen: Soft, nontender, nondistended. Positive bowel sounds. Extremities: No clubbing, cyanosis, or edema. Neurologic: Nonfocal. Total time spent discharging patient was 36 minutes. JOSÉ LUIS Voice ID: [id number] Report ID: [id number] MTDD
[2019-07-31 14:18] VITALS: BP 154/70; TEMP 96.2
== END 2019-07-31 13:21 | disposition home or self-care (01) | DRG 291 ==
LOC: ER 13:26 → ERHOLD 16:15 → 4TH 17:00 → OBSVTOIN 07-28 09:26 → 4TH 07-28 11:56 → 2ND 07-28 17:35
PROVIDERS: ADMIT Internal Medicine; ATTEND Family Medicine
DX: I11.0 Hypertensive heart disease with heart failure (principal); I50.31 Acute diastolic (congestive) heart failure; Z68.41 Body mass index [BMI] 40.0-44.9, adult; E66.9 Obesity, unspecified; J84.10 Pulmonary fibrosis, unspecified; Z66 Do not resuscitate; R06.03 Acute respiratory distress; R09.02 Hypoxemia; R50.9 Fever, unspecified; R06.02 Shortness of breath; Z20.828 Contact with and (suspected) exposure to other viral communicable diseases
CPT/HCPCS: 36415; 71045; 71275; 80048; 80053; 80076; 82805; 83735; 83880; 84484; 85025; 85379; 85610; 86140; 87040; 93005; 93306; 94640; 96374; 97112; 97116; 97161; 99285; G0378; J0360; J1650; J1940; J2405; J7512; Q9967; U0002